=== PATIENT | female | born 1980 | race Caucasian/White ===

== ENCOUNTER → 2017-11-18 19:33 | Outpatient (CLI) | payer BC, SELFPAY ==
[2017-11-18 22:19] LABS: Chlamydia Trachomatis by PCR Negative (Negative); Neisserai gonorrhoeae by PCR Negative (Negative); Probe Check PASS; Sample Adequacy Control PASS; Specimen Processing Control PASS
[2017-11-24 09:48] LABS: HPV APTIMA, High Risk Negative (Negative)
== END ==
PROVIDERS: Visit Provider Obstetrics & Gynecology
DX: Z34.90 Encounter for supervision of normal pregnancy, unspecified, unspecified trimester (principal); Z12.4 Encounter for screening for malignant neoplasm of cervix
CPT/HCPCS: 87086; 87088; 87491; 87591; 88175; G0145

== ENCOUNTER → 2017-12-25 17:02 | Outpatient (CLI) | payer BC, SELFPAY ==
[2017-12-25 17:38] LABS: Absolute Lymphocyte Count 2.65 X10^3/ul (0.83-4.51); Absolute Neutrophil Count 8.9 X10^3/uL (2.0-7.7); Basophil# 0.04 X10^3/uL; Basophil% 0.3 % (0-1); Eosinophil# 1.13 X10^3/uL; Eosinophils% 8.6 % (0-5); Hematocrit 37.6 % (37-47); Hemoglobin 12.4 g/dl (12.0-15.0); Lymphocyte # 2.65 X10^3/ul (4.0); Lymphocyte % 20.3 % (19-41); Mean Corpuscular Hgb 28.6 pg (27.0-32.0); Mean Corpuscular Volume 86.8 fL (81-99); Mean Platelet Vol. 10.1 fl (6.2-12.0); Monocyte# 0.35 X10^3/uL; Monocyte% 2.7 % (0-10); Neutrophil # 8.89 X10^3/uL (2.7-7.7); Neutrophil % 67.9 % (47-70); POSITIVE COUNT NO; POSITIVE DIFFERENTIAL NO; POSITIVE MORPHOLOGY NO; Platelet Count 265 K/mm3 (150-450); RBC Distribution Width CV 13.6 % (11.6-14.6); RBC Distribution Width SD 43.6 fl (35.1-43.9); Red Blood Count 4.33 M/mm3 (4.2-5.4); White Blood Count 13.1 K/mm3 (4.4-11.0)
[2017-12-25 17:56] LABS: Glucose Challenge Gest 1H 50g 100 mg/dL (70-140)
[2017-12-25 18:47] LABS: HIV - WCH Non-Reactive (Nonreactive); Rubella IgG > 500.0 IU/mL
[2017-12-29 14:37] LABS: HEPATITIS B SURFACE AG Negative (Negative)
[2018-01-01 04:13] LABS: Rapid Plasmin Reagin (RPR) NONREACTIVE (NONREACTIVE)
== END ==
LOC: LAB 17:03
PROVIDERS: Referring Provider Obstetrics & Gynecology; Visit Provider Obstetrics & Gynecology
DX: Z34.90 Encounter for supervision of normal pregnancy, unspecified, unspecified trimester (principal)
CPT/HCPCS: 36415; 82950; 85025; 86592; 86703; 86762; 86850; 86900; 87340

== ENCOUNTER → 2018-01-01 12:38 | Outpatient (CLI) | payer BC, SELFPAY | PROVIDERS: Visit Provider Obstetrics & Gynecology | DX: Z34.82 Encounter for supervision of other normal pregnancy, second trimester (principal) | CPT/HCPCS: 36415 ==

== ENCOUNTER → 2018-04-02 16:40 | Outpatient (CLI) | payer BC, SELFPAY ==
[2018-04-02 16:00] VITALS: BMI 35.9
[2018-04-02 17:12] LABS: Absolute Lymphocyte Count 1.95 X10^3/ul (0.83-4.51); Absolute Neutrophil Count 9.6 X10^3/uL (2.0-7.7); Basophil# 0.04 X10^3/uL; Basophil% 0.3 % (0-1); Eosinophil# 0.79 X10^3/uL; Eosinophils% 6.1 % (0-5); Hematocrit 34.4 % (37-47); Hemoglobin 11.2 g/dl (12.0-15.0); Lymphocyte # 1.95 X10^3/ul (4.0); Lymphocyte % 15.1 % (19-41); Mean Corp Hgb Conc 32.6 g/gl (32-36); Mean Corpuscular Hgb 29.6 pg (27.0-32.0); Mean Platelet Vol. 9.9 fl (6.2-12.0); Monocyte# 0.43 X10^3/uL; Monocyte% 3.3 % (0-10); Neutrophil # 9.63 X10^3/uL (2.7-7.7); Neutrophil % 74.7 % (47-70); Platelet Count 276 K/mm3 (150-450); RBC Distribution Width CV 13.8 % (11.6-14.6); RBC Distribution Width SD 44.7 fl (35.1-43.9); Red Blood Count 3.78 M/mm3 (4.2-5.4); White Blood Count 12.9 K/mm3 (4.4-11.0)
[2018-04-02 17:14] LABS: POSITIVE COUNT NO; POSITIVE DIFFERENTIAL NO; POSITIVE MORPHOLOGY NO
[2018-04-02 17:15] LABS: Glucose Challenge Gest 1H 50g 137 mg/dL (70-140)
== END ==
PROVIDERS: Referring Provider Obstetrics & Gynecology; Visit Provider Obstetrics & Gynecology
DX: Z34.90 Encounter for supervision of normal pregnancy, unspecified, unspecified trimester (principal)
CPT/HCPCS: 36415; 82950; 85025

== ENCOUNTER → 2018-04-16 09:55 | Outpatient (CLI) | payer BC, SELFPAY ==
[2018-04-02 16:00] VITALS: BMI 35.9
[2018-04-16 12:03] LABS: Glucose GTT-Gestation. Fasting 76 mg/dL (<105)
[2018-04-16 12:06] LABS: Glucose GTT-Gestational 1 Hr 117 mg/dL (<190)
[2018-04-16 13:43] LABS: Glucose GTT-Gestational 2 Hr 91 mg/dL (<165)
[2018-04-16 16:29] LABS: Glucose GTT-Gestational 3 Hr 65 L (<145)
== END ==
PROVIDERS: Referring Provider Obstetrics & Gynecology; Visit Provider Obstetrics & Gynecology
DX: O24.419 Gestational diabetes mellitus in pregnancy, unspecified control (principal); Z3A.00 Weeks of gestation of pregnancy not specified
CPT/HCPCS: 36415; 82951; 82952

== ENCOUNTER → 2018-06-04 16:47 | Outpatient (CLI) | payer BC, SELFPAY ==
[2018-06-04 16:43] VITALS: BMI 35.9
== END ==
PROVIDERS: Referring Provider Obstetrics & Gynecology; Visit Provider Obstetrics & Gynecology
DX: Z34.90 Encounter for supervision of normal pregnancy, unspecified, unspecified trimester (principal)
CPT/HCPCS: 87081

== ENCOUNTER 2018-06-30 07:24 | Inpatient (IN) | payer BC, SELFPAY ==
[2018-06-29 08:25] VITALS: BMI 35.9
[2018-06-30] VITALS (13 sets, daily range): BP systolic 109–128; BP diastolic 52–78; PULSE 74–85; RESP 14–20; TEMP 36.1–36.9; O2SAT 96–100; BMI 35.6
--- NOTE | 2018-06-30 04:48 | HP.PCM_ITS ---
- Problem List (1) Family history of cleft palate Status: Acute Comment: MFM ultrasound (2) History of placenta abruption Status: Acute Comment: post trauma, 33 week US normal with MFM. 37 week us normal with MFM (3) History of hemorrhage Status: Acute Comment: transfusion after dtr (4) Parotid tumor Status: Acute Comment: francois in [place] (5) Status: Acute Qualifiers: Comment: NIPT low risk. 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 Is patient in pain?: No Allergies codiene Adverse Reaction (Severe, Uncoded 06/29/18 08:24) vomiting, itchy Medications vitamin,calcium,jmrjotnd-bqgc-ojtsi acid tablet 1 tab PO DAILY 11/18/17 [History Confirmed 06/29/18] Last Menstral Period: 09/23/17 Zika: Zika virus screening: Negative : No PFSH PFSH Surgical History History of tonsillectomy and adenoidectomy (Acute) Hx laparoscopic cholecystectomy (Acute) Family History Mother Cancer cervical Grandfather Cancer lung Hypertension Myocardial infarction Diabetes Grandmother Myocardial infarction Thyroid disorder Social History Smoking Status: Light Smoker (<10/day) alcohol intake: never substance use type: does not use caffeine: Yes Type: coffee Number of servings: 2 seatbelt use: always do you feel safe at home: Yes 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 Date Name GA/Weeks Outcome Route Bth Weight Infant Gen Labor Lgth Anesthesia Del Locatn Provider FOB Unknown Mccray 2002 42 live - full term 6 15 oz Male 5 epidural kenya mccray Unknown Demetriuskrystina 2008 41 live - full term 6 13 Female 13 epidural wenceslao wenceslao Delivery Date: On 11/18/17 @ 15:35 Samra Ortega abruption, hemorrhage, transfusion Delivery Date: No notes to display HPI 40 week ob: Details: DAVONTE ADKINS is a 38 year old who presents for routine OB visit. OB Visit GABRIELA Calculator Estimated Delivery Date 06/30/18 Based on LMP (certain) 09/23/17 Current WG 39w 6d Number 1 Expected Delivery Route/Plan Specific Issue/Plans flu vaccine: declines tdap vaccine: given rhogam: NA LARC form signed: brianne labor support person: William pain management: epidural cut cord/dad catch: Dad cord, patient catch : yes PP control planned: [] special requests: [] Initial Weight: Not Recorded Date EGA Weight BP Urine Prot Glucose FHR FuHt Pres Mov CTX Dilation Effaced St Visit Note 12/25/17 13w 2d 240 lb 2 oz 122/78 150 no vb cramping 02/05/18 19w 2d 243 lb 110/70 145 no vb cramping. 03/05/18 23w 2d 244 lb 2 oz 126/80 Negative Negative 149 23 Active absent NO VB, LOF. Doing well. 04/02/18 27w 2d 245 lb 124/78 140 27 absent no vb lof good fmn oregular ctx 04/16/18 29w 2d 240 lb 116/62 Negative Negative 145 30 Active absent no vb lof good fm no regular ctx 04/30/18 31w 2d 244 lb 4 oz 112/60 Negative Negative 141 32 Active absent No VB, lOF. Doing well. Work requires 50hr per week, feels this is difficult for her. 05/14/18 33w 2d 244 lb 120/60 145 34 Active absent no vb lof good fm no regular ctx 05/28/18 35w 2d 240 lb 124/64 150 35 Cephalic Active absent no vb lof good fm no regular ctx 06/04/18 36w 2d 237 lb 112/56 150 36 Cephalic Active absent 1 no vb lof good 06/14/18 37w 5d 238 lb 122/72 140 37 Cephalic Active absent 1 2: 0 -2 no vb lof good fm no reglar ctx 06/17/18 38w 1d 242 lb 116/64 135 Decr absent Work in , NST decreased movement 06/21/18 38w 5d 236 lb 112/60 Negative Negative 135 38 Cephalic Active absent 1.5 2: 0 -2 no vb lof good fm oregular ctx 06/29/18 39w 6d 240 lb 110/72 Negative Negative 135 39 Cephalic Active absent 1.5 4: 0 -2 no vb lof good fm n oregular ctx discussed PPTL if desired, patient to decide. plan IOL tomorrow Visit Notes Visit Date: 06/29/18 ??no vb lof good fm n oregular ctx discussed PPTL if desired, patient to decide. plan IOL tomorrow ??Samra Ortega MD on 06/29/18 Visit Date: 06/21/18 ??no vb lof good fm oregular ctx ??Samra Ortega MD on 06/21/18 Visit Date: 06/17/18 ??Work in , NST decreased movement ??ELIDA Chaudhry on 06/17/18 Visit Date: 06/14/18 ??no vb lof good fm no reglar ctx ??Samra Ortega MD on 06/14/18 Visit Date: 06/04/18 ??no vb lof good ??Samra Ortega MD on 06/04/18 Visit Date: 05/28/18 ??no vb lof good fm no regular ctx ??Samra Ortega MD on 05/28/18 Visit Date: 05/14/18 ??no vb lof good fm no regular ctx ??Samra Ortega MD on 05/14/18 Visit Date: 04/30/18 ??No VB, lOF. Doing well. Work requires 50hr per week, feels this is difficult for her. ??ELIDA Chaudhry on 04/30/18 Visit Date: 04/16/18 ??no vb lof good fm no regular ctx ??Samra Ortega MD on 04/16/18 Visit Date: 04/02/18 ??no vb lof good fmn oregular ctx ??Samra Ortega MD on 04/02/18 Visit Date: 03/05/18 ??NO VB, LOF. Doing well. ??ELIDA Chaudhry on 03/05/18 Visit Date: 02/05/18 ??no vb cramping. ??Samra Ortega MD on 02/05/18 Visit Date: 12/25/17 ??no vb cramping ??Samra Ortega MD on 12/25/17 ACOG First Trimester First Trimester: Desire for , Alcohol, Tobacco Cessation, Illicit/Recreational Drug/Substance Use, Intimate Partner Violence, Barriers to care, Unstable Housing, Communication Barriers, Environmental/Work Hazards, Anticipated Course of Care, Toxoplasmosis Precations, Use of Any medic ations, Sexual activity, Exercise, Dental Care, Sauna/Hot tub use, Seat Belt use, Childbirth classes/Hospital facilities, , Travel, Indications for US and Screening for Aneuploidy Diagnostics Diagnostics Labs Hct 34.4 % (37-47) L 04/02/18 Hgb 11.2 g/dl (12.0-15.0) L 04/02/18 Glucose 1 Hr 50 gm 137 mg/dL (70-140) 04/02/18 Details: HIV: Urine Culture: Sequential Screen: NIPT Screen: Results [id number] Office Urine Glucose Negative Last Edit by Gabriela Enriquez on 06/29/18 08:31 Office Urine Protein Negative Last Edit by Gabriela Enriquez on 06/29/18 08:31 Assessment & Plan Problems 1. History of placenta abruption Z87.59 2. , high-risk, maternal age 35+ multigravida O09.529 3. 39 weeks gestation of Z3A.39 4. Family history of cleft palate Z82.79 5. History of hemorrhage Z86.2 6. Parotid tumor D49.0 7. complicated by tobacco use in second trimester O99.332 Plan IOL pitocin and carias bulb epidural if desired movement and labor precautions reviewed. ACOG trimester education reviewed and updated. see problem list details for updated plan management information and see below for orders placed at this visit. GA appropriate handout given. Orders Orders: POC Urinalysis 2 Dip (Clinic) Today Coding Level of Care Code OB Routine Diagnoses History of placenta abruption Z87.59 , high-risk, maternal age 35+ multigravida O09.529 39 weeks gestation of Z3A.39 ??Weeks of gestation: 39 weeks Family history of cleft palate Z82.79 History of hemorrhage Z86.2 Parotid tumor D49.0 complicated by tobacco use in second trimester O99.332 ??Trimester: second trimester UPDATE- I have seen the patient and performed any clinically relevant updates to the history and physical exam. Samra Ortega MD
[2018-06-30] MEDS: Lactated Ringers 1,000 ML 50 ML IV (07:42)
[2018-06-30] MEDS: 0.9% Normal Saline 100 ML IV.SOLN. INTRA-UTER (07:47)
[2018-06-30 08:14] LABS: Absolute Lymphocyte Count 2.32 X10^3/ul (0.83-4.51); Absolute Neutrophil Count 13.1 X10^3/uL (2.0-7.7); Basophil# 0.04 X10^3/uL; Basophil% 0.2 % (0-1); Eosinophil# 0.79 X10^3/uL; Eosinophils% 4.7 % (0-5); Hematocrit 34.1 % (37-47); Hemoglobin 11.5 g/dl (12.0-15.0); Lymphocyte # 2.32 X10^3/ul (4.0); Lymphocyte % 13.8 % (19-41); Mean Corp Hgb Conc 33.7 g/gl (32-36); Mean Corpuscular Hgb 29.7 pg (27.0-32.0); Mean Corpuscular Volume 88.1 fL (81-99); Mean Platelet Vol. 10.3 fl (6.2-12.0); Monocyte# 0.46 X10^3/uL; Monocyte% 2.7 % (0-10); Neutrophil # 13.11 X10^3/uL (2.7-7.7); Neutrophil % 78.3 % (47-70); POSITIVE COUNT NO; POSITIVE DIFFERENTIAL NO; POSITIVE MORPHOLOGY NO; Platelet Count 374 K/mm3 (150-450); RBC Distribution Width CV 14.3 % (11.6-14.6); Red Blood Count 3.87 M/mm3 (4.2-5.4); White Blood Count 16.8 K/mm3 (4.4-11.0)
[2018-06-30] MEDS: Oxytocin 30 units/NS 500 ml 30 UNITS/500 ML IV.SOLN IV (08:26)
[2018-06-30] MEDS: Cefazolin 2 GM in 0.9% Normal Saline 100 ML IV (13:03)
[2018-06-30] MEDS: Ondansetron 4 MG/2 ML Vial IV (13:15)
[2018-06-30] MEDS: Ketorolac 30 MG/ML Syringe IV ×2 (13:15→20:01)
--- NOTE | 2018-06-30 13:44 | RAD_ITS ---
STUDY: X-RAY - ABDOMEN/PELVIS REASON FOR EXAM: Female, 38 years old. Emergency , evaluate for foreign body TECHNIQUE: Single AP view of the abdomen / pelvis. COMPARISON: None. FINDINGS: Normal visualized lung bases. There is an abundance of fecal material throughout the colon. There is no demonstrated free abdominal air. There is no radiopaque foreign body. The visualized liver, spleen and kidneys are grossly normal in size and morphology. Normal soft tissue structures. Normal visualized osseous structures. RAD/Abdomen Single View (Portable) IMPRESSION: No radiopaque foreign body. Constipation. Electronically Signed: Lane Levy, at 14:15 EDT Tel , Service support ,
--- NOTE | 2018-06-30 14:47 | PCM.OPRPT ---
Problem List (1) Family history of cleft palate Status: Acute Comment: MFM ultrasound (2) History of placenta abruption Status: Acute Comment: post trauma, 33 week US normal with MFM. 37 week us normal with MFM (3) History of hemorrhage Status: Acute Comment: transfusion after dtr (4) Parotid tumor Status: Acute Comment: francois in [place] (5) Status: Acute Qualifiers: Comment: NIPT low risk. MFM Anatomy US normal (6) , high-risk, maternal age 35+ multigravida Status: Acute Comment: PRR GABRIELA 06/30/18 gender surprise Hernan Alberts William (3 other kids) (7) Tobacco use complicating Status: Acute Qualifiers: Comment: encouraged cessation Delivery Classification: Stat Final GABRIELA: 06/30/18 Gestational age: 40 Weeks and Days Indications for : Distress, Prolapsed Cord Description of Procedure: The patient presented for induction of labor secondary to advanced maternal age. Patient began induction labor with Pitocin and a Post bulb and then her membranes were ruptured. At 15 minutes after rupture of membranes a prolonged decelerations was noted and upon examination there was prolapse of the umbilical cord and a stat section was called. She underwent general anesthesia after Post catheter was placed. Betadine splash prep was performed and sterile dressings were placed on the abdomen and then Pfannenstiel skin incision was made with the scalpel and carried through to the underlying layer of fascia with the scalpel. Fascia was nicked in the midline and the incision distended laterally. The peritoneum was entered digitally. The incision was stretched and a low transverse uterine incision was made with the scalpel. The 's head was delivered atraumatically followed by the anterior and posterior shoulders without complication the rest of the delivered. The cord was clamped and cut and the was handed off to awaiting nurse. The placenta was delivered spontaneously immediately following and was noted to be intact and have a three-vessel cord. The uterus was exteriorized cleared of all clots and debris, and the incision was closed in a double layer closure using #1 Monocryl. The uterus was returned to the maternal abdomen and gutters were cleared of all clots and debris. The ovaries and fallopian tubes were noted to be within normal limits. The peritoneum was closed with 3-0 Monocryl in a running fashion. Fascia was closed with 0 PDS in a running fashion. Subcutaneous tissue was copiously irrigated and the skin was closed with 3-0 Monocryl in a subcuticular fashion. Steri-Strips and Mepilex dressing were applied without complication. Patient was taken to recovery in stable condition. Amniotic Membrane Rupture Type: Artificial Amniotic Fluid Description: Clear Placenta Disposition: [facility] Drain: Post to straight drain Cord Entanglement: None Esitmated Blood Loss (ml): 1000 Gender: Female Delayed cord clamping: No Pre-op Antibiotic Given: - - Azithromycin 500 mg - Admit VTE Documentation VTE Present on Admission: No VTE Mechan Device Prophylaxis: SCD's
[2018-06-30] MEDS: Lactated Ringers 1,000 ML 100 ML IV ×2 (14:58→20:01)
--- NOTE | 2018-06-30 15:00 | CASEMGMT ---
Social Work Labor and Delivery Unit Responded to the OB-ERT on unit which was related to prolapsed cord. This blog writer introduced self to patient's /father of baby (FOB) William and stayed with FOB while baby was delivered via caesarian section, and then when FOB able to meet and hold baby for the first time. Answered questions and offered emotional support to FOB as needed and indicated. FOB having a hard time initially, and started to get woozy so a chair was obtained and FOB was able to get bearings. FOB tearful at times and admits to having many thoughts and emotions in a short amount of time, worry for both patient and baby. This blog writer stayed with FOB for most of time that patient remained back in surgical area. Allowed FOB time to talk, provided emotional support and encouragement to FOB. FOB shared personal frame of reference regarding emotions during the OB-ERT as FOB was scared due MOB having a traumatic post delivery hemorrhage after last delivery in [place] 10 years ago. FOB talked about stressors during this including patient's father being killed by a drunk driver license examiner in December 2017, and FOB's father being diagnosed with cancer but now currently in remission. FOB reports this was a surprise but accepted by both patient and FOB. Patient and FOB in October 2017 but have been together for a couple of years and each have 2 children from prior relationships, with this baby (Gelacio), the first child for both together. FOB expressed much appreciation for the support offered today. FOB also expressing much satisfaction with the quick response by the [facility] labor and delivery team. -BURAK Watts, MICAH
[2018-06-30] MEDS: Oxytocin 30 units/NS 500 ml 30 UNITS/500 ML IV.SOLN 167 UNITS IV (15:02)
[2018-06-30] MEDS: Metoclopramide 10 MG/2 ML Vial IV ×2 (15:18→15:33)
[2018-06-30] MEDS: HYDROmorphone 1 MG/ML Syringe IV (15:19)
--- NOTE | 2018-06-30 15:35 | NURSING ---
initial count not done due to emergency situation. xray obtained to confirm count
[2018-06-30] MEDS: oxyCODONE 5 MG Tablet PO (21:15)
[2018-06-30] MEDS: Cefazolin 1 GM/50 ML BAG IV (21:17)
[2018-07-01] MEDS: Lactated Ringers 500 ML 999 ML IV (00:10)
[2018-07-01] MEDS: Lactated Ringers 1,000 ML 100 ML IV (01:25)
[2018-07-01] MEDS: Ketorolac 30 MG/ML Syringe IV ×4 (01:26→19:45)
[2018-07-01 04:45] VITALS: BP 106/59; PULSE 81; RESP 18; TEMP 36.3; O2SAT 98
[2018-07-01] MEDS: oxyCODONE 5 MG Tablet PO ×2 (04:51→17:55)
[2018-07-01] MEDS: Cefazolin 1 GM/50 ML BAG IV (04:52)
[2018-07-01 05:08] LABS: Hematocrit 25.3 % (37-47); Hemoglobin 8.3 g/dl (12.0-15.0); Mean Corp Hgb Conc 32.8 g/gl (32-36); Mean Corpuscular Hgb 29.3 pg (27.0-32.0); Mean Corpuscular Volume 89.4 fL (81-99); Mean Platelet Vol. 9.5 fl (6.2-12.0); Platelet Count 321 K/mm3 (150-450); RBC Distribution Width CV 14.2 % (11.6-14.6); RBC Distribution Width SD 45.1 fl (35.1-43.9); Red Blood Count 2.83 M/mm3 (4.2-5.4); Scan Indicated on CBC? Y/N NO; White Blood Count 15.7 K/mm3 (4.4-11.0)
[2018-07-01 07:51] VITALS: BP 96/51; PULSE 76; RESP 48; TEMP 36.5; O2SAT 95
--- NOTE | 2018-07-01 08:43 | NURSING ---
Was with student DM when she administered Toradol. Also assisted student with D/C of carias cath. Check over student's documentation for accuracy.
[2018-07-01 11:37] VITALS: BP 107/56; PULSE 85; RESP 18; TEMP 36.9; O2SAT 93
[2018-07-01] MEDS: Prenatal Vits Tablet 1 TABLET PO (13:42)
[2018-07-01] MEDS: Senna/Docusate Sodium 1 Tablet PO (13:42)
--- NOTE | 2018-07-01 13:59 | NURSING ---
assisted student with the toradol administration
[2018-07-01 15:50] VITALS: BP 109/62; PULSE 80; TEMP 37.1; O2SAT 95
[2018-07-01 16:00] VITALS: BP 112/64; PULSE 85; RESP 18; TEMP 37; O2SAT 95
--- NOTE | 2018-07-01 19:34 | PCM.PN.OB ---
Subjective: doing well no complaints pain controlled no CP SOB N V ambulating well tolerating po lochia moderate, going well - Physical Exam Vital Signs Temp Pulse Resp BP Pulse Ox 98.6 F 85 18 112/64 95 07/01/18 16:00 07/01/18 16:00 07/01/18 16:00 07/01/18 16:00 07/01/18 16:00 Oxygen Delivery Method Room Air Weight: 241 lb Body Mass Index (BMI) 35.6 Intake and Output for Last 24 Hours 06/29/18 06/30/18 07/01/18 23:59 23:59 23:59 Intake Total 3189 / 3189 794 / 794 Output Total 485 / 485 800 / 800 Balance 2704 / 2704 -6 / -6 Laboratory Tests Past 24 Hrs 07/01/18 05:00 WBC 15.7 H RBC 2.83 L Hgb 8.3 L Hct 25.3 L MCV 89.4 MCH 29.3 MCHC 32.8 RDW 14.2 RDW Differential 45.1 H Plt Count 321 MPV 9.5 Medical Necessity - Tobacco Use Smoking Status: Light Smoker (<10/day) Assessment/Plan All Active Problems (Last Reviewed 06/29/18 @ 08:25 by Gabriela Enriquez) Parotid tumor (Acute) History of placenta abruption (Acute) Tobacco use complicating (Acute) , high-risk, maternal age 35+ multigravida (Acute) (Acute) Family history of cleft palate (Acute) History of hemorrhage (Acute) Advanced maternal age (AMA) in (Resolved) Normal glucose level (Resolved) Pyelectasis of fetus on ultrasound (Resolved) s/p LTCS PPD # 1 1. routine post care 2. breast feeding- support given 3. rh positive 4. rubella immune
[2018-07-01] MEDS: 0.9% Saline Lock 10 ML Syringe IV (19:45)
[2018-07-01 19:57] VITALS: BP 104/56; PULSE 82; RESP 18; TEMP 36.3
[2018-07-02 02:35] VITALS: BP 109/59; PULSE 92; RESP 18; TEMP 36.5
[2018-07-02] MEDS: Ketorolac 30 MG/ML Syringe IV ×2 (02:47→08:06)
[2018-07-02] MEDS: 0.9% Saline Lock 10 ML Syringe IV (02:47)
[2018-07-02] MEDS: oxyCODONE 5 MG Tablet PO ×3 (06:39→17:00)
[2018-07-02] MEDS: Prenatal Vits Tablet 1 TABLET PO (07:59)
[2018-07-02 08:00] VITALS: BP 105/55; PULSE 82; RESP 16; TEMP 36.4
[2018-07-02] MEDS: Senna/Docusate Sodium 1 Tablet PO (08:00)
--- NOTE | 2018-07-02 08:21 | PCM.PN.OB ---
Subjective: doing well no complaints pain controlled no CP SOB N V ambulating well tolerating po lochia moderate, going well - Physical Exam General: Alert, Oriented x3 Abdomen: Soft, Non-Distended, - - FF below U. Dressing dry and intact Vital Signs Temp Pulse Resp BP Pulse Ox 97.7 F L 92 18 109/59 L 95 07/02/18 02:35 07/02/18 02:35 07/02/18 02:35 07/02/18 02:35 07/01/18 16:00 Oxygen Delivery Method Room Air Weight: 241 lb Body Mass Index (BMI) 35.6 Intake and Output for Last 24 Hours 06/30/18 07/01/18 07/02/18 23:59 23:59 23:59 Intake Total 3189 / 3189 794 / 794 Output Total 485 / 485 800 / 800 Balance 2704 / 2704 -6 / -6 Medical Necessity - Tobacco Use Smoking Status: Light Smoker (<10/day) Assessment/Plan All Active Problems (Last Reviewed 06/29/18 @ 08:25 by Gabriela Enriquez) Parotid tumor (Acute) History of placenta abruption (Acute) Tobacco use complicating (Acute) , high-risk, maternal age 35+ multigravida (Acute) (Acute) Family history of cleft palate (Acute) History of hemorrhage (Acute) Advanced maternal age (AMA) in (Resolved) Normal glucose level (Resolved) Pyelectasis of fetus on ultrasound (Resolved) s/p LTCS PPD # 2 1. routine post care 2. breast feeding- support given 3. rh positive 4. rubella immune
[2018-07-02 13:52] VITALS: BP 109/64; PULSE 82; RESP 16; TEMP 36.9
--- NOTE | 2018-07-02 15:16 | NURSING ---
Received report from Shoshana Santos RN. I will assume care of patient at this time.
[2018-07-02 19:50] VITALS: BP 121/54; PULSE 82; RESP 18; TEMP 36.6
[2018-07-03 00:15] VITALS: BP 120/59; PULSE 87; RESP 18; TEMP 36.4
[2018-07-03] MEDS: Naproxen 250 MG Tablet PO ×2 (00:17→08:08)
--- NOTE | 2018-07-03 00:46 | NURSING ---
Pt asking for bottles/nipples to put pumped breastmilk into. Encouraged/Educated Pt to use spoon or carias cup; however, she declined and again stated she wanted bottles/nipples so that she can pump and get rest while FOB feeds baby. Bottles/nipples given per patient request.
[2018-07-03 06:40] VITALS: BP 109/52; PULSE 75; RESP 18; TEMP 36.8
[2018-07-03] MEDS: Senna/Docusate Sodium 1 Tablet PO (08:09)
[2018-07-03 09:05] VITALS: BP 112/60; PULSE 80; RESP 16; TEMP 36.6; O2SAT 99
--- NOTE | 2018-07-03 09:42 | PCM.PN.OB ---
Subjective: doing well no complaints pain controlled no CP SOB N V ambulating well tolerating po lochia moderate, going well - Physical Exam General: Alert, Oriented x3 Abdomen: Soft, Non-Distended, - - FF below U. Dressing dry and intact Vital Signs Temp Pulse Resp BP Pulse Ox 97.9 F 80 16 112/60 99 07/03/18 09:05 07/03/18 09:05 07/03/18 09:05 07/03/18 09:05 07/03/18 09:05 Oxygen Delivery Method Room Air Weight: 241 lb Body Mass Index (BMI) 35.6 Intake and Output for Last 24 Hours 07/01/18 07/02/18 07/03/18 23:59 23:59 23:59 Intake Total 794 / 794 Output Total 800 / 800 Balance -6 / -6 Medical Necessity - Tobacco Use Smoking Status: Light Smoker (<10/day) Assessment/Plan All Active Problems (Last Reviewed 06/29/18 @ 08:25 by Gabriela Enriquez) Parotid tumor (Acute) History of placenta abruption (Acute) Tobacco use complicating (Acute) , high-risk, maternal age 35+ multigravida (Acute) (Acute) Family history of cleft palate (Acute) History of hemorrhage (Acute) Advanced maternal age (AMA) in (Resolved) Normal glucose level (Resolved) Pyelectasis of fetus on ultrasound (Resolved) s/p LTCS PPD # 3 1. routine post care 2. breast feeding- support given 3. rh positive 4. rubella immune 5. plan home today
--- NOTE | 2018-07-03 09:44 | PCM.DCCSEC ---
Additional Instructions: If you experience any of the following, contact your healthcare provider. Bleeding that soaks a pad every hour for 2 hours Fever 100.4 or higher Unrelieved incision or abdominal pain Swelling, redness, discharge or bleeding from your incision or episiotomy site Your incision begins to separate Problems urinating (including inability to urinate or burning while urinating). Visual changes Severe headache Flu-like symptoms Pain or redness in one of both of your breasts Pain, warmth, tenderness or swelling in your legs, especially the calf area Frequent nausea and vomiting Symptoms of depression or anxiety If you experience any of the following, call 911 or go to the nearest Emergency Room. Chest pain Problems breathing Seizure activity Partial or complete paralysis of a body part, slurred speech, weakness or drooping of the face, or a sudden inability to walk or hold your balance Allergies/Adverse Reactions: Allergies codeine Adverse Reaction (Verified 06/30/18 08:18) Itching vomiting morphine Adverse Reaction (Verified 06/30/18 08:18) Itching nausea Medications to take at Discharge vitamin,calcium,rshtulvi-ykcp-tawhu acid tablet 1 tab PO DAILY 11/18/17 Naproxen [Naprosyn] 250 - 500 mg PO Q8H PRN PRN #30 tablet 07/02/18 Oxycodone HCl/Acetaminophen [Percocet 5-325] 1 - 2 tablet PO Q4H PRN PRN 7 Days #28 tablet 07/02/18 The following prescriptions were given: Oxycodone HCl/Acetaminophen [Percocet 5-325] 1 - 2 tablet PO Q4H PRN PRN 7 Days #28 tablet PRN Reason: Moderate-Severe pain Naproxen [Naprosyn] 250 - 500 mg PO Q8H PRN PRN #30 tablet PRN Reason: MILD PAIN Follow-Up: Call to make an appointment with your doctor for an incision check in 1-2 weeks. You will also need a 6 week post- follow up appointment. Test results from this visit will be discussed in further detail at your follow-up appointment, if applicable. Primary Care Physician: Care Physician,No Primary [Primary Care Provider] -
--- NOTE | 2018-07-03 09:45 | DCINST_ITS ---
Additional Instructions: If you experience any of the following, contact your healthcare provider. * Bleeding that soaks a pad every hour for 2 hours * Fever 100.4 or higher * Unrelieved incision or abdominal pain * Swelling, redness, discharge or bleeding from your incision or episiotomy site * Your incision begins to separate * Problems urinating (including inability to urinate or burning while urinating). * Visual changes * Severe headache * Flu-like symptoms * Pain or redness in one of both of your breasts * Pain, warmth, tenderness or swelling in your legs, especially the calf area * Frequent nausea and vomiting * Symptoms of depression or anxiety If you experience any of the following, call 911 or go to the nearest Emergency Room. * Chest pain * Problems breathing * Seizure activity * Partial or complete paralysis of a body part, slurred speech, weakness or drooping of the face, or a sudden inability to walk or hold your balance Allergies/Adverse Reactions: Allergies codeine Adverse Reaction (Verified 06/30/18 08:18) Itching vomiting morphine Adverse Reaction (Verified 06/30/18 08:18) Itching nausea Medications to take at Discharge vitamin,calcium,kqcvfzpi-dtmi-rjluw acid tablet 1 tab PO DAILY 11/18/17 Naproxen [Naprosyn] 250 - 500 mg PO Q8H PRN PRN #30 tablet 07/02/18 Oxycodone HCl/Acetaminophen [Percocet 5-325] 1 - 2 tablet PO Q4H PRN PRN 7 Days #28 tablet 07/02/18 The following prescriptions were given: Oxycodone HCl/Acetaminophen [Percocet 5-325] 1 - 2 tablet PO Q4H PRN PRN 7 Days #28 tablet PRN Reason: Moderate-Severe pain Naproxen [Naprosyn] 250 - 500 mg PO Q8H PRN PRN #30 tablet PRN Reason: MILD PAIN Follow-Up: Call to make an appointment with your doctor for an incision check in 1-2 weeks. You will also need a 6 week post- follow up appointment. Test results from this visit will be discussed in further detail at your follow- up appointment, if applicable. Primary Care Physician: Care Physician,No Primary [Primary Care Provider] -
[2018-07-03] MEDS: Prenatal Vits Tablet 1 TABLET PO (12:21)
[2018-07-03 13:50] VITALS: BP 120/70; PULSE 89; RESP 16; TEMP 36.7; O2SAT 98
--- NOTE | 2018-07-06 08:36 | PCM.DC.SUM ---
Discharge Date and Diagnosis Date of Admission: 06/30/18 Hospital Course and Treatment Consultations 06/30/18 07:30 Consult: Anesthesia Routine Comment: Reason For Exam: LABOR Procedures: - - LTCS for prolapse cord Summary of Care Provided: The patient is a 38 year old F Patient underwent section with routine recovery, return of normal bowel and bladder function. Ambulating, voiding and tolerating PO. Stable for discharge home POD #3. - Physical Exam Vital Signs Temp Pulse Resp BP Pulse Ox 98.0 F 89 16 120/70 98 07/03/18 13:50 07/03/18 13:50 07/03/18 13:50 07/03/18 13:50 07/03/18 13:50 Oxygen Delivery Method Room Air Weight: 241 lb Body Mass Index (BMI) 35.6 Home Medications: Medications to take at Discharge vitamin,calcium,ldarxxbc-ttyx-wfuoz acid tablet 1 tab PO DAILY 11/18/17 Naproxen [Naprosyn] 250 - 500 mg PO Q8H PRN PRN #30 tablet 07/02/18 Oxycodone HCl/Acetaminophen [Percocet 5-325] 1 - 2 tablet PO Q4H PRN PRN 7 Days #28 tablet 07/02/18 Following Prescrptions Were Given to Patient: Oxycodone HCl/Acetaminophen [Percocet 5-325] 1 - 2 tablet PO Q4H PRN PRN 7 Days #28 tablet PRN Reason: Moderate-Severe pain Naproxen [Naprosyn] 250 - 500 mg PO Q8H PRN PRN #30 tablet PRN Reason: MILD PAIN Primary Care Physician: Care Physician,No Primary [Primary Care Provider] - Please follow up with your Primary Care Physician in: 1-2 weekds Please Follow Up With: Samra Ortega MD Medical Necessity - Tobacco Use Smoking Status: Light Smoker (<10/day) Meaningful Use Info Meaningful Use Diagnoses (Choose all that apply): None applicable
== END 2018-07-03 13:50 | disposition home or self-care (01) | DRG 788 ==
PROVIDERS: Admitting Provider Obstetrics & Gynecology; Referring Provider Obstetrics & Gynecology; Visit Provider Obstetrics & Gynecology
DX: O99.334 Smoking (tobacco) complicating childbirth (principal); O69.0XX0 Labor and delivery complicated by prolapse of cord, not applicable or unspecified; O77.9 Labor and delivery complicated by fetal stress, unspecified; O76 Abnormality in fetal heart rate and rhythm complicating labor and delivery; D49.0 Neoplasm of unspecified behavior of digestive system; Z3A.39 39 weeks gestation of pregnancy; Z37.0 Single live birth
CPT/HCPCS: 59025; 59050; 74018; 85025; 85027; 86850; 86900; 99218; J7120; A4216; G0378; J2405

== ENCOUNTER → 2018-08-13 13:58 | Outpatient (CLI) | payer BC, SELFPAY ==
[2018-07-20 14:57] VITALS: BMI 35.6
--- NOTE | 2018-08-13 14:00 | US_ITS ---
STUDY: Ultrasound head and neck/soft tissue REASON FOR EXAM: Female, 38 years old. Parotid gland neoplasm TECHNIQUE: Ultrasound evaluation of the left parotid gland was performed with real-time and static levin-scale imaging. COMPARISON: None. FINDINGS: There is a fairly well-defined heterogeneous soft tissue mass of the left facial region measuring 7.3 x 4.3 x 2.4 cm. This mass demonstrates a linear striated pattern. There is mild internal vascularity. The surrounding soft tissue fascial planes are preserved. US/Head/Neck Soft Tissue IMPRESSION: Subcutaneous soft tissue mass of the left facial region measuring approximately 7.3 x 4.[address] with contrast would be helpful for further evaluation. Electronically Signed: Rey Abel MD at 16:25 EDT , Service support ,
== END ==
LOC: US 13:59
PROVIDERS: Referring Provider Otolaryngology; Visit Provider Otolaryngology
DX: D11.0 Benign neoplasm of parotid gland (principal)
CPT/HCPCS: 76536

== ENCOUNTER 2018-09-03 17:45 | Observation (INO) | payer BC, SELFPAY ==
[2018-08-17 13:15] VITALS: BMI 35.6
[2018-09-03] VITALS (8 sets, daily range): BP systolic 114–126; BP diastolic 60–85; PULSE 74–111; RESP 16–18; TEMP 36.2–36.7; O2SAT 89–98; BMI 33.4
--- NOTE | 2018-09-03 | LIP_PTH ---
PATIENT: DAVONTE BURNETTE LOC: [facility] U#:[id number] AGE/SX: 38/F ROOM: [facility]316 RE09/03/[address]: Dr. Mohit Cazares MD : 1980 BED: 1 DIS: 09/04/2018 SPEC #: [id number] RECD: 09/06/18 10:57 STATUS: NII REBunny #: [id number] CHECO: 09/03/18 00:[address]: Mohit Cazares DEPT: SURGICAL PATHOLOGY RECD BY: Gregory Claros ENTERED: 09/06/18 10:58 SP TYPE: LIPOMA OTHR DR: No Primary Care Phys Tissues: Parotid gland, NOS Procedures: Surgery Specimen Level V HEADER OPERATION: Left parotidectomy PRE-OP DIAGNOSIS: Benign neoplasm of parotid gland TISSUE SUBMITTED: Left parotid lipoma MICROSCOPIC DIAGNOSIS Left parotid neoplasm, left parotidectomy: Mature adipose tissue consistent with lipoma. Four out of four lymph nodes with no pathologic change. Focal mild chronic sialadenitis. AM:jenn 09/07/18 COMMENT Case has been reviewed in consultation with Dr. Munson who concurs with the above diagnosis. IDC:HAO MICROSCOPIC DESCRIPTION Slides are reviewed. GROSS DESCRIPTION Received in fixative is one container labeled with the patient's name and designated left parotid lipoma. The specimen consists of a piece of glandular tissue with adjacent lobular piece of adipose tissue weighing 95 gm. The glandular tissue measures 8 x 5 x 2 cm and the lobular piece of adipose tissue measures 10 x 7 x 3.5 cm. The external surface is inked black. Sections of the glandular tissue do not reveal any mass lesion. Sections of the nodular adipose tissue reveal yellow adipose cut surface without area of necrosis or cystic degeneration. No lesion is noted within the glandular tissue and adipose tissue. Traffic Monitor Specialist sections are submitted in eight cassettes as follows: 1 - adipose tissue and adjacent parotid and glandular tissue, 2 & 3 - more sections of glandular tissue, 4-8 - more sections of adipose tissue. / HAO:jenn 09/06/18 TC:1 CPT: 54033
[2018-09-03 13:18] LABS: Internal QC Validated? YES +Cl - CLEAR BKGD; Pregnancy, Urine Negative Negative
[2018-09-03] MEDS: Bacitracin 500 UNITS/GM PACKET (17:30)
--- NOTE | 2018-09-03 17:40 | OP.PCM_ITS ---
Problem List (1) Parotid tumor Status: Chronic Comment: francois in dmitri Report of Operation Date of Procedure: 09/03/18 Pre-Operative Diagnosis: Left parotid mass, probable lipoma Post-Operative Diagnosis: Same Surgery/Procedure Performed:: Left parotidectomy with facial nerve monitoring Description of Surgical Findings:: Armando is a 38-year-old female who presents with a slowly enlarging mass of the left parotid over the last 11 years. Ultrasound evaluation showed findings consistent with lipoma given its very large size excision for definitive elaine luation as well as relief of mass-effects was offered she was eager to proceed. The risks, alternatives, potential complications, and benefits were discussed at length and any questions answered to the patient and/or caregiver's satisfaction. Witnessed informed consent was obtained in the office, and the patient and/or caregiver was agreeable to proceed. Procedure went as follows: The patient was identified in the preoperative holding and the left parotid lesion site marked in accordance with the patient's physical skin exam, office notes, and consent. The patient was then brought to the operating room, placed under general anesthesia and intubated. When appropriate anesthesia was obtained, the facial nerve monitoring electrodes were then placed in accordance with the manufacture's directions over the left side of the face and confirmed to be operational. The planned incision was then marked with a marking pen and injected with 1% lidocaine with 100,000 epinephrine for a total of 8 mL. After allowing for vasoconstriction, a standard parotidectomy incision was then made using a 15 blade scalpel through the skin and subcutaneous tissues. The subcutaneous tissue was then dissected and the greater auricular nerve identified with the branches along the posterior aspect of the incisional flap preserved. Dissection was then carried down along the sternocleidomastoid freeing the parotid attachments to this muscle. Dissection was then carried out along the tragal cartilage and the main trunk of the facial nerve identified. The gland was then resected following out along t he facial nerve branches working inferiorly to superiorly and freeing the mass from the parotid gland sacrificing a cuff of normal-appearing parotid tissue. A massive 10 x 7 x 3 cm lipomatous mass was included within the lateral aspect of the parotid gland that was completely resected. This was then sent for surgical specimen. Operative stimulation of the facial nerve branches confirmed preserv ation of function. The wound bed was then copiously irrigated with saline solution and a #7 flat MEETA drain placed and brought out through separate stab incision in the skin. The wound was then closed deeply with interrupted 3-0 Vicryl sutures followed by a running 5-0 Monocryl to the skin. The patient was then returned to anesthesia, was revived, and extubated without complication having tolerated the procedure well. Type of Anesthesia:: General Anesthesiologist: Henrik Camacho Special Medications: none Specimen's removed: left parotid lobe and mass Drains: #7 flat MEETA Estimated Blood Loss (mL): 10 mL Fluids Replaced: 1600 mL Grafts/Implants Used: none - Complications none - Admit VTE Documentation VTE Present on Admission: No VTE Mechan Device Prophylaxis: SCD's VTE Pharm Prophylaxis ordered?: No
--- NOTE | 2018-09-03 17:44 | DCINST_ITS ---
You will use the following diet at home:: Regular Discharge Activity: Return to Normal Activity, May not drive while taking narcotic pain medications. Call your doctor if your incision/area has: Increased Pain/ Swelling, Increased Redness, Foul Smelling Discharge, Swelling at the incision site Call your doctor if you observe: Fever of 101 or Higher, Uncontrolled pain Suture Line Care: Avoid Pulling/Pushing Cleanse incision/area with: Soap & Water Allergies/Adverse Reactions: Allergies codeine Adverse Reaction (Verified 08/30/18 14:11) Itching vomiting morphine Adverse Reaction (Verified 08/30/18 14:11) Itching nausea Medications to take at Discharge Pnv No.95/Ferrous Fum/Folic AC [ Caplet] 1 ea PO DAILY 08/30/18 Primary Care Physician: Care Physician,No Primary [Primary Care Provider] - Test Results: Test results from this visit will be discussed in further detail at your follow- up appointment, if applicable. Please Follow Up With: Mohit Cazares MD When: 10 days
[2018-09-03] MEDS: Lactated Ringers 1,000 ML 120 ML IV (20:03)
[2018-09-03] MEDS: Ibuprofen 200 MG Tablet 400 MG PO (21:58)
[2018-09-04] MEDS: Lactated Ringers 1,000 ML 120 ML IV (04:21)
[2018-09-04 04:22] VITALS: BP 104/56; PULSE 80; RESP 16; TEMP 36.6; O2SAT 96
[2018-09-04] MEDS: Ibuprofen 200 MG Tablet 400 MG PO (04:27)
--- NOTE | 2018-09-04 07:58 | PCM.PN.SRG ---
Subjective: Patient reports she is doing well. She feels that he facial movement is intact. She does report numbness of the left ear. She denies significant incisional or other pain. Objective: Well appearing female with intact left parotidectomy incision. There is a grade 1 facial weakness in the lower branches on the left. - Physical Exam General: Alert, Oriented x3, Cooperative, No apparent distress HEENT: Atraumatic, PERRLA, - - incision clean, dry and intact Oral: Moist Mucosa Neck: Supple Lungs: Normal air movement, No rhonchi, No wheeze Cardiovascular: Regular rate, Regular Rhythm Skin: No rashes, No breakdown Psych/Mental Status: Alert and oriented to time, place, person, mood and affect Vital Signs Temp Pulse Resp BP Pulse Ox 97.8 F 80 16 104/56 L 96 09/04/18 04:22 09/04/18 04:22 09/04/18 04:22 09/04/18 04:22 09/04/18 04:22 Oxygen Flow Rate (L/min) 2 Oxygen Delivery Method Room Air Weight: 102.7 kg Body Mass Index (BMI) 33.4 Intake and Output for Last 24 Hours 09/02/18 09/03/18 09/04/18 23:59 23:59 23:59 Intake Total 1850 / 2770 1840 / 1840 Output Total 20 / 470 470 / 470 Balance 1830 / 2300 1370 / 1370 Laboratory Tests Past 24 Hrs 09/03/18 13:01 Urine Test Negative Medical Necessity - Tobacco Use Smoking Status: Light Smoker (<10/day) Tobacco Use: Cigarettes Assessment/Plan All Active Problems (Last Reviewed 08/17/18 @ 13:15 by Gabriela Enriquez) History of placenta abruption (Acute) Tobacco use complicating (Acute) , high-risk, maternal age 35+ multigravida (Acute) (Acute) Family history of cleft palate (Acute) History of hemorrhage (Acute) Advanced maternal age (AMA) in (Resolved) Normal glucose level (Resolved) Pyelectasis of fetus on ultrasound (Resolved) Doing well s/p left parotidectomy. Facial movement is almost completely intact and full recovery is anticipated. Drain output 20 mL overnight and 5mL after 4 hours and this is removed at the bedside. Discharge to home is advised.
[2018-09-04 08:04] VITALS: BP 117/67; PULSE 67; RESP 16; TEMP 37; O2SAT 94
== END 2018-09-04 08:44 | disposition home or self-care (01) ==
LOC: SDC 09-06 09:58 → MS3 09-06 09:58
PROVIDERS: Anesthesiology; Admitting Provider Otolaryngology; Referring Provider Otolaryngology; Visit Provider Otolaryngology
PROC: (CPT 42410; principal; 2018-09-03 14:05)
DX: D17.0 Benign lipomatous neoplasm of skin and subcutaneous tissue of head, face and neck (principal); F17.210 Nicotine dependence, cigarettes, uncomplicated
CPT/HCPCS: 42415; 81025; 88305; 88307; 96360; 96361; 99218; J7120; G0378; G0379; J2405